=== PATIENT | male | born 1950 | race Caucasian/White ===

== ENCOUNTER 2019-08-10 17:46 | Emergency (ER) | payer MEDICARE ==
--- NOTE | 2019-08-10 19:23 | ER Document Report ---
ED Medical Screen (RME) - General Chief Complaint: General Weakness Stated Complaint: GENERAL FATIGUE VERY WEAK Time Seen by Provider: 08/10/19 19:16 - HPI Notes: 08/10/19 19:21 Patient is a 69-year-old male with a history of ascites and cirrhosis as well as a ?rt abd clot (on coumadin for) who presents complaining of generalized weakness and dyspnea exertion for the past month. Denies fever, chest pain, vomiting/diarrhea. Patient states that he has not had any paracentesis performed recently. I have treated and performed a rapid initial assessment of this patient. A comprehensive ED assessment and evaluation of the patient, analysis of test results and completion of medical decision making process will be conducted by additional ED providers. PHYSICAL EXAMINATION: GENERAL: Well-appearing, well-nourished and in no acute distress. A&Ox4. Answers questions appropriately. Lungs: CTAB Heart: RRR Extremities: No edema Physical Exam - Vital signs Vitals: Temp Pulse Resp BP Pulse Ox 98 F 86 18 124/60 100 08/10/19 18:05 08/10/19 18:05 08/10/19 18:05 08/10/19 18:05 08/10/19 18:05 Course - Vital Signs Vital signs: Temp Pulse Resp BP Pulse Ox 98 F 86 18 124/60 100 08/10/19 18:05 08/10/19 18:05 08/10/19 18:05 08/10/19 18:05 08/10/19 18:05
[2019-08-10 20:58] LABS: APPEARANCE,URINE CLEAR; BILIRUBIN,URINE NEGATIVE (NEGATIVE); COLOR,URINE YELLOW; GLUCOSE, URINE NEGATIVE (NEGATIVE); KETONES,URINE NEGATIVE (NEGATIVE); PROTEIN,URINE NEGATIVE (NEGATIVE); URINE SPECIFIC GRAVITY 1.018
--- NOTE | 2019-08-10 20:58 | RADIOLOGY REPORT (SQ) ---
XR CHEST 2 VIEWS EXAM DATE: 08/10/2019 7:20 PM QUANTITATIVE DEVELOPER HISTORY: [facility]. COMPARISON: None. FINDINGS: Normal heart size without pulmonary edema. The lungs are clear. No pleural effusions or pneumothorax. No acute bony findings are seen. IMPRESSION: No evidence of acute cardiopulmonary disease.
[2019-08-10 21:05] LABS: HEMATOCRIT 17.6 % (37.9-51.0); MEAN CORPUSCULAR HEMOGLOBIN 21.3 pg (27.0-33.4); MEAN CORPUSCULAR HGB CONC 30.8 g/dL (32.0-36.0); MEAN CORPUSCULAR VOLUME 69 fl (80-97); PLATELET COUNT 161 10^3/uL (150-450); RED BLOOD COUNT 2.55 10^6/uL (4.35-5.55); RED CELL DISTRIBUTION WIDTH 19.8 % (11.5-14.0); WHITE BLOOD COUNT 4.8 10^3/uL (4.0-10.5)
[2019-08-10 21:10] LABS: HEMOGLOBIN 5.4 g/dL (13.5-17.0)
[2019-08-10 21:17] LABS: INTERNATIONAL RATION (INR) 4.01; PROTHROMBIN TIME 40.1 SEC (11.4-15.4)
[2019-08-10] MEDS ORDERED: NORMAL SALINE 250 ML IV PRN ×2 (21:24)
[2019-08-10] MEDS ORDERED: ADENOSINE INJ/PF 6 MG/2 ML SDV IV ONE (21:26)
[2019-08-10 21:35] LABS: ALBUMIN 3.2 g/dL (3.5-5.0); ALKALINE PHOSPHATASE 120 U/L (38-126); ANION GAP 10 (5-19); ASPARTATE AMINO TRANSFERASE 24 U/L (17-59); BILIRUBIN,DIRECT 0.2 mg/dL (0.0-0.4); BILIRUBIN,TOTAL 0.5 mg/dL (0.2-1.3); BLOOD UREA NITROGEN 15 mg/dL (7-20); CALCIUM 8.5 mg/dL (8.4-10.2); CARBON DIOXIDE 19 mmol/L (22-30); CHLORIDE 109 mmol/L (98-107); GLUCOSE 95 mg/dL (75-110); POTASSIUM 3.9 mmol/L (3.6-5.0)
[2019-08-10] MEDS ORDERED: PANTOPRAZOLE SODIUM 40 MG VIAL IV ONE (21:35)
[2019-08-10] MEDS ORDERED: PANTOPRAZOLE SODIUM 40 MG VIAL IV PRN (21:36)
[2019-08-10] MEDS ORDERED: OCTREOTIDE ACETATE INJ/PF 100 MCG/1 ML SDV IV ONE (21:36)
[2019-08-10 21:45] LABS: NT PRO BNP 292 pg/mL (<125); TROPONIN I < 0.012 ng/mL
--- NOTE | 2019-08-10 21:46 | ER Document Report ---
ED General - General Chief Complaint: General Weakness Stated Complaint: GENERAL FATIGUE VERY WEAK Time Seen by Provider: 08/10/19 19:16 Mode of Arrival: Ambulatory Information source: Patient TRAVEL OUTSIDE OF THE U.S. IN LAST 30 DAYS: No - HPI Onset: Other - over the last few weeks Onset/Duration: Gradual Quality of pain: Other - Patient only has chest pain when his heart is racing. Patient developed chest pain in the ER when he went into SVT Severity: Moderate Pain Level: Denies Associated symptoms: Shortness of breath, Weakness Exacerbated by: Other - exertion Notes: 69 year old male with a history of Alcoholic Cirrhosis, Prior GI Bleed and Varicies, Recent Diagnosis of a Right Groin "Clot" on Coumadin here for generalized weakness, shortness of breath, and an episode of palpitations which was self limited. The patient just moved from [place], [place] to here in [facility]. The patient was seen and evaluated by the midlevel provider in the ER prior to me seeing the patient and he had labs drawn which revealed a hemoglobin in the 5s. The patient went into SVT while in his ER room. During this time the patient had SOB, chest pain, and he felt his heart racing - Related Data Allergies/Adverse Reactions: No Known Allergies Allergy (Unverified 08/10/19 20:54) Home Medications: coumadin Past Medical History - Social History Smoking Status: Current Every Day Smoker Frequency of alcohol use: patient used to be an alcoholic Drug Abuse: Marijuana Lives with: Alone Family History: Reviewed & Not Pertinent Patient has suicidal ideation: No Patient has homicidal ideation: No Review of Systems - Review of Systems Constitutional: Weakness EENT: No symptoms reported Cardiovascular: Chest pain, Palpitations, Heart racing, Dizziness, Lightheaded Respiratory: Short of breath Gastrointestinal: Black stools Genitourinary: No symptoms reported Male Genitourinary: No symptoms reported Musculoskeletal: No symptoms reported Skin: No symptoms reported Hematologic/Lymphatic: No symptoms reported Neurological/Psychological: Weakness Physical Exam - Vital signs Vitals: Temp Pulse Resp BP Pulse Ox 98 F 86 18 124/60 100 08/10/19 18:05 08/10/19 18:05 08/10/19 18:05 08/10/19 18:05 08/10/19 18:05 - Notes Notes: GENERAL: Well-appearing, well-nourished and in no acute distress. HEAD: Atraumatic, normocephalic. EYES: Pupils equal round and reactive to light, extraocular movements intact, sclera anicteric, conjunctiva are normal. ENT: TMs normal, nares patent, oropharynx clear without exudates. Moist mucous membranes. Poor Dentition with missing teeth NECK: Normal range of motion, supple without lymphadenopathy or JVD. LUNGS: Breath sounds clear to auscultation bilaterally and equal. No wheezes rales or rhonchi. HEART: Regular rate and rhythm without murmurs, rubs or gallops. ABDOMEN: Soft, nontender, normoactive bowel sounds. No guarding, no rebound. No masses appreciated. Mild abdominal distention. RECTAL: Brown Stool, Guiac negative EXTREMITIES: Normal range of motion, no pitting or edema. No clubbing or cyanosis. NEUROLOGICAL: Cranial nerves II through XII grossly intact. Normal speech, normal gait. PSYCH: Normal mood, normal affect. SKIN: Warm, Dry, normal turgor, no rashes or lesions noted. Patient is somewhat pale appearing Course - Re-evaluation Re-evalutation: 08/10/19 23:15 The patient is very anemic with a hemoglobin in the 5s. He went into SVT while in the ER. This was broken with Adenosine 6mg. Patient had some chest pain and S T depressions in V4-V6 while he was in SVT but these EKG changes normalized once he came out of SVT and into sinus rhythm. Patient had 2 units of Trauma Blood ordered since he was in SVT likely due to his severe anemia. Patient was then given a 3rd unit of type specific blood. Patient also was started on Protonix and Octreotide (bolus and infusion). There is no GI assembler bonding at this hospital so plan is for patient transfer 08/11/19 00:34 The patient was accepted at [facility] by Dr. Cleveland. Patient remains stable a this time. Will administer 5mg of Oral Vitamin K since the patient's INR is in thr 4s. 08/11/19 00:52 - Vital Signs Vital signs: Temp Pulse Resp BP Pulse Ox 97.5 F 82 18 126/87 H 100 08/10/19 22:59 08/10/19 23:01 08/11/19 00:01 08/11/19 00:00 08/11/19 00:01 - Laboratory Result Diagrams: 08/10/19 20:49 08/10/19 20:49 Laboratory results interpreted by me: 08/10/19 08/10/19 08/10/19 20:00 20:49 20:49 RBC 2.55 L Hgb 5.4 L Hct 17.6 L MCV 69 L MCH 21.3 L MCHC 30.8 L RDW 19.8 H Seg Neuts % (Manual) 80 H Monocytes % (Manual) 2 L PT 40.1 H Chloride Carbon Dioxide NT-Pro-B Natriuret Pep Albumin TSH Urine Urobilinogen 2.0 H Crossmatch 08/10/19 08/10/19 08/10/19 20:49 20:49 20:49 RBC Hgb Hct MCV MCH MCHC RDW Seg Neuts % (Manual) Monocytes % (Manual) PT Chloride 109 H Carbon Dioxide 19 L NT-Pro-B Natriuret Pep 292 H Albumin 3.2 L TSH 5.51 H Urine Urobilinogen Crossmatch 08/10/19 21:31 RBC Hgb Hct MCV MCH MCHC RDW Seg Neuts % (Manual) Monocytes % (Manual) PT Chloride Carbon Dioxide NT-Pro-B Natriuret Pep Albumin TSH Urine Urobilinogen Crossmatch See Detail - EKG Interpretation by Me EKG shows normal: Sinus rhythm Rate: Normal Rhythm: NSR [place]/QRS: Left axis deviation Critical Care Note - Critical Care Note Total time excluding time spent on procedures (mins): 40 Discharge - Discharge Clinical Impression: SVT (supraventricular tachycardia) GI bleed Qualifiers: GI bleed type/associated pathology: unspecified gastrointestinal hemorrhage type Qualified Code(s): K92.2 - Gastrointestinal hemorrhage, unspecified Anemia Qualifiers: Anemia type: unspecified type Qualified Code(s): D64.9 - Anemia, unspecified Cirrhosis Qualifiers: Hepatic cirrhosis type: alcoholic cirrhosis Ascites presence: with ascites Qualified Code(s): K70.31 - Alcoholic cirrhosis of liver with ascites Condition: Serious Disposition: CRITICAL ACCESS HOSPITAL
[2019-08-10 21:47] LABS: ABSOLUTE LYMPHOCYTES# (MANUAL) 0.7 10^3/uL (0.5-4.7); ABSOLUTE MONOCYTES # (MANUAL) 0.1 10^3/uL (0.1-1.4); BASOPHILS % (MANUAL) 2 % (0-2); EOSINOPHILS % (MANUAL) 1 % (0-6); LYMPHOCYTES % (MANUAL) 15 % (13-45); MONOCYTES % (MANUAL) 2 % (3-13); SEGMENTED NEUTROPHILS % (MAN) 80 % (42-78); TOTAL CELLS COUNTED 100
[2019-08-10 21:50] LABS: HYPOCHROMASIA 1+; PLATELET COMMENT ADEQUATE
[2019-08-10 21:51] LABS: ANISOCYTOSIS 2+; OVALOCYTES 1+; SCHISTOCYTES SLIGHT; TEAR DROP CELLS 1+
[2019-08-10] MEDS ORDERED: OCTREOTIDE ACETATE INJ/PF 100 MCG/1 ML SDV ONE (22:05)
[2019-08-10] MEDS ORDERED: NORMAL SALINE 500 ML with OCTREOTIDE ACETATE 500 MCG IV PRN ×2 (22:29)
--- NOTE | 2019-08-10 23:01 | EKG REPORT ---
SEVERITY:- ABNORMAL ECG - SINUS RHYTHM LEFT AXIS DEVIATION PROBABLE ANTEROSEPTAL INFARCT, OLD : Confirmed by: Kike Rodriguez MD 10-Aug-2019 22:59:56
--- NOTE | 2019-08-10 23:01 | EKG REPORT ---
SEVERITY:- ABNORMAL ECG - SUPRAVENTRICULAR TACHYCARDIA LEFT ANTERIOR FASCICULAR BLOCK CONSIDER ANTEROSEPTAL INFARCT REPOLARIZATION ABNORMALITY, PROB RATE RELATED : Confirmed by: Kike Rodriguez MD 10-Aug-2019 23:01:01
--- NOTE | 2019-08-10 23:02 | EKG REPORT ---
SEVERITY:- ABNORMAL ECG - SINUS RHYTHM BORDERLINE IVCD WITH LAD OLD ANTEROSEPTAL W[place] : Confirmed by: Kike Rodriguez MD 10-Aug-2019 23:01:36
[2019-08-11] MEDS ORDERED: PHYTONADIONE 5 MG TABLET PO ONE (00:35)
[2019-08-11 02:02] VITALS: BP 138/86
== END 2019-08-11 01:27 | disposition short-term general hospital (02) ==
LOC: ER 17:46
DX: I47.1 Supraventricular tachycardia (principal); K92.2 Gastrointestinal hemorrhage, unspecified; D64.9 Anemia, unspecified; K70.31 Alcoholic cirrhosis of liver with ascites; R53.1 Weakness; R53.83 Other fatigue; R06.02 Shortness of breath; R00.2 Palpitations; R07.9 Chest pain, unspecified; R42 Dizziness and giddiness; Z79.01 Long term (current) use of anticoagulants; F17.200 Nicotine dependence, unspecified, uncomplicated
CPT/HCPCS: 93005; 99291; 96375; 96365; 96366; 96368; 86900; 86901; 36415; 36430; 86850; 82962; 83735; 84443; 85025; 85610; 80053; 81001; 84484; 86920; 83880; 71046; 93010; P9016; A9270 ×2; C9113; J0153; J2354; J3490; J7050

== ENCOUNTER 2019-09-11 11:36 | Emergency (ER) | payer MEDICARE ==
--- NOTE | 2019-09-11 13:29 | ER Document Report ---
ED Medical Screen (RME) - General Chief Complaint: Abdominal Pain Stated Complaint: ABDOMINAL PAIN Time Seen by Provider: 09/11/19 13:26 Mode of Arrival: Ambulatory Information source: Patient Notes: 69-year-old male presented to ED for complaint of abdominal pain and distention. He does have a history of cirrhosis and does have ascites. He is alert oriented respirations regular nonlabored. No nausea and vomiting nausea any fever fever denies any nausea vomiting or fever. States he was in the emergency room a month ago and was transferred to [place] for blood clot. He states he was on blood thinners and was bleeding internally. States he got a transfusion here before being transferred last month. I have greeted and performed a rapid initial assessment of this patient. A comprehensive ED assessment and evaluation of the patient, analysis of test results and completion of medical decision making process will be conducted by an additional ED providers. TRAVEL OUTSIDE OF THE U.S. IN LAST 30 DAYS: No - Related Data Allergies/Adverse Reactions: No Known Allergies Allergy (Verified 09/11/19 13:26) Past Medical History Pulmonary Medical History: Reports: Hx COPD Physical Exam - Vital signs Vitals: Temp Pulse Resp BP Pulse Ox 97.4 F 67 19 148/80 H 98 09/11/19 13:17 09/11/19 13:17 09/11/19 13:17 09/11/19 13:17 09/11/19 13:17 Course - Vital Signs Vital signs: Temp Pulse Resp BP Pulse Ox 97.4 F 67 19 148/80 H 98 09/11/19 13:17 09/11/19 13:17 09/11/19 13:17 09/11/19 13:17 09/11/19 13:17
--- NOTE | 2019-09-11 13:29 | ER Document Report ---
ED GI/ - General Chief Complaint: Abdominal Pain Stated Complaint: ABDOMINAL PAIN Time Seen by Provider: 09/11/19 13:26 Mode of Arrival: Ambulatory Information source: Patient TRAVEL OUTSIDE OF THE U.S. IN LAST 30 DAYS: No - Related Data Allergies/Adverse Reactions: No Known Allergies Allergy (Verified 09/11/19 13:26) Past Medical History - Social History Family History: Reviewed & Not Pertinent Pulmonary Medical History: Reports: Hx COPD Physical Exam - Vital signs Vitals: Temp Pulse Resp BP Pulse Ox 97.4 F 67 19 148/80 H 98 09/11/19 13:17 09/11/19 13:17 09/11/19 13:17 09/11/19 13:17 09/11/19 13:17 Course - Vital Signs Vital signs: Temp Pulse Resp BP Pulse Ox 97.4 F 67 19 148/80 H 98 09/11/19 13:17 09/11/19 13:17 09/11/19 13:17 09/11/19 13:17 09/11/19 13:17
--- NOTE | 2019-09-11 14:02 | RADIOLOGY REPORT (SQ) ---
EXAM DESCRIPTION: ACUTE ABDOMEN SERIES COMPLETED DATE/TIME: 09/11/2019 12:52 pm REASON FOR STUDY: Abdominal pain and distention history of ascites. Mid abdominal and right lower q uadrant pain. COMPARISON: None. NUMBER OF VIEWS: Three views. TECHNIQUE: Frontal chest, supine abdomen and upright/decubitus abdomen radiographic images acquired. LIMITATIONS: None. FINDINGS: CHEST: Lungs clear of infiltrates. FREE AIR: None. No abnormal gas collections. BOWEL GAS PATTERN: Upright view demonstrates diffuse hazy opacification throughout the abdomen with s mall bowel loops pushed into the upper abdomen, probably representing moderate amount of ascites. Way pine view demonstrates normal gas-filled loops of small bowel without evidence of obstruction. CALCIFICATIONS: No suspicious calcifications. HARDWARE: None in the abdomen. SOFT TISSUES: No gross mass or suggestion of organomegaly. BONES: No acute fracture. No worrisome bone lesions. OTHER: No other significant finding. IMPRESSION: Probable moderate amount of ascites. Nonobstructive bowel gas pattern. TECHNICAL DOCUMENTATION: JOB ID: [id number]- All Rights Reserved Reading location - IP/workstation name: [email or web address]
[2019-09-11 16:25] LABS: HEMATOCRIT 29.4 % (37.9-51.0); HEMOGLOBIN 9.4 g/dL (13.5-17.0); INTERNATIONAL RATION (INR) 1.18; MEAN CORPUSCULAR HEMOGLOBIN 23.8 pg (27.0-33.4); MEAN CORPUSCULAR HGB CONC 31.9 g/dL (32.0-36.0); MEAN CORPUSCULAR VOLUME 75 fl (80-97); PLATELET COUNT 124 10^3/uL (150-450); PROTHROMBIN TIME 15.1 SEC (11.4-15.4); RED BLOOD COUNT 3.93 10^6/uL (4.35-5.55); RED CELL DISTRIBUTION WIDTH 22.6 % (11.5-14.0); WHITE BLOOD COUNT 3.8 10^3/uL (4.0-10.5)
[2019-09-11 16:46] LABS: ALBUMIN 3.3 g/dL (3.5-5.0); ALKALINE PHOSPHATASE 131 U/L (38-126); ANION GAP 10 (5-19); ASPARTATE AMINO TRANSFERASE 27 U/L (17-59); BILIRUBIN,DIRECT 0.3 mg/dL (0.0-0.4); BILIRUBIN,TOTAL 0.7 mg/dL (0.2-1.3); BLOOD UREA NITROGEN 13 mg/dL (7-20); CALCIUM 8.7 mg/dL (8.4-10.2); CARBON DIOXIDE 22 mmol/L (22-30); CHLORIDE 107 mmol/L (98-107); GLUCOSE 77 mg/dL (75-110); TOTAL PROTEIN 7.1 g/dL (6.3-8.2)
[2019-09-11 16:57] LABS: ABSOLUTE LYMPHOCYTES# (MANUAL) 0.6 10^3/uL (0.5-4.7); ABSOLUTE MONOCYTES # (MANUAL) 0.2 10^3/uL (0.1-1.4); BASOPHILS % (MANUAL) 3 % (0-2); EOSINOPHILS % (MANUAL) 6 % (0-6); LYMPHOCYTES % (MANUAL) 15 % (13-45); MONOCYTES % (MANUAL) 4 % (3-13); SEGMENTED NEUTROPHILS % (MAN) 72 % (42-78); TOTAL CELLS COUNTED 100
[2019-09-11 16:59] LABS: ANISOCYTOSIS 3+; HYPOCHROMASIA SLIGHT; PLATELET COMMENT DECREASED; PLATELET LARGE PRESENT
--- NOTE | 2019-09-11 17:05 | ER Document Report ---
ED General - General Chief Complaint: Abdominal Pain Stated Complaint: ABDOMINAL PAIN Time Seen by Provider: 09/11/19 13:26 Mode of Arrival: Ambulatory Notes: 69-year-old male arrives by POV with chief complaint of ascites and abdominal pain. He reports he has not had this tapped and more than 1 month. He was recently seen here in this ER on [address] Sol after having a 5.8 hemoglobin and went into SVT and was recovered after adenosine. Patient received 3 units of packed RBCs and Protonix and octreonide and also transferred to [place] for GI because we had no specialist here at that time. Patient reports he is out of his Lasix and spironolactone and Protonix. I spoke with nursing nursery supervisor for fast food sales assistant in order to get tapped for peritoneal access. 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 This continued for many years and and 2008 was diagnosed with disease and ascites. Patient reported when he was in [place] in June he was hospitalized in [facility] and placed on Coumadin because of a blood clot in his right thigh. TRAVEL OUTSIDE OF THE U.S. IN LAST 30 DAYS: No - Related Data Allergies/Adverse Reactions: No Known Allergies Allergy (Verified 09/11/19 13:36) Past Medical History - General Information source: Patient - Social History Smoking Status: Current Every Day Smoker Cigarette use (# per day): Yes Chew tobacco use (# tins/day): No Smoking Education Provided: Yes Frequency of alcohol use: Ex-drinker of alcohol Drug Abuse: None Family History: Reviewed & Not Pertinent Patient has suicidal ideation: No Patient has homicidal ideation: No Pulmonary Medical History: Reports: Hx COPD Review of Systems - Review of Systems Constitutional: No symptoms reported EENT: No symptoms reported Cardiovascular: No symptoms reported Respiratory: No symptoms reported Gastrointestinal: See HPI, Abdomen distended - very taunt abdomen Genitourinary: No symptoms reported Male Genitourinary: No symptoms reported Musculoskeletal: No symptoms reported Skin: No symptoms reported Hematologic/Lymphatic: No symptoms reported Neurological/Psychological: No symptoms reported Physical Exam - Vital signs Vitals: Temp Pulse Resp BP Pulse Ox 97.4 F 67 19 148/80 H 98 09/11/19 13:17 09/11/19 13:17 09/11/19 13:17 09/11/19 13:17 09/11/19 13:17 Interpretation: Normal - General General appearance: Alert In distress: None - HEENT Head: Normocephalic Eyes: Normal Conjunctiva: Normal Cornea: Normal Extraocular movements intact: Yes Eyelashes: Normal Pupils: PERRL Sinus: Normal Nasal: Normal Mouth/Lips: Normal Mucous membranes: Normal Pharynx: Normal Neck: Normal - Respiratory Respiratory status: No respiratory distress Chest status: Nontender Breath sounds: Normal Chest palpation: Normal - Cardiovascular Rhythm: Regular Heart sounds: Normal auscultation Murmur: No Friction rub: No Aretha's crunch: No - Abdominal Inspection: Other - Ascites quite evident from epigastric to suprapubic and very taut Distension: Distended Bowel sounds: Normal Tenderness: Nontender Organomegaly: No organomegaly - Back Back: Normal - Extremities General upper extremity: Normal inspection General lower extremity: Normal inspection - Neurological Neuro grossly intact: Yes Cognition: Normal Orientation: AAOx4 Song Coma Scale Eye Opening: Spontaneous [place] Coma Scale Verbal: Oriented [place] Coma Scale Motor: Obeys Commands [place] Coma Scale Total: 15 Speech: Normal Cranial nerves: Normal Cerebellar coordination: Normal Motor strength normal: LUE, RUE, LLE, RLE Additional motor exam normals: Equal adjunct instructor - Psychological Associated symptoms: Normal affect - Skin Skin Temperature: Warm Skin Moisture: Dry Course - Vital Signs Vital signs: Temp Pulse Resp BP Pulse Ox 97.4 F 70 20 165/80 H 100 09/11/19 13:17 09/11/19 19:50 09/11/19 19:50 09/11/19 19:50 09/11/19 19:50 - Laboratory Result Diagrams: 09/11/19 15:42 09/11/19 15:42 Laboratory results interpreted by me: 09/11/19 09/11/19 09/11/19 14:31 15:42 15:42 WBC 3.8 L RBC 3.93 L Hgb 9.4 L Hct 29.4 L MCV 75 L MCH 23.8 L MCHC 31.9 L RDW 22.6 H Plt Count 124 L Basophils % (Manual) 3 H Alkaline Phosphatase 131 H Albumin 3.3 L Urine Urobilinogen 2.0 H Critical Care Note - Critical Care Note Total time excluding time spent on procedures (mins): 90 Comments: I spoke with Cedric CLAYTON who is nursery supervisor and also with [facility] and x-ray for arranging for paracentesis tomorrow. Ultrasound-guided paracentesis is only 8:00 to 4 PM Ressie in ultrasound called me alert me that he took off around 6 L on paracentesis for Mr. Palomo. He tolerated this well. He was observed for least 1 to 2 hours and was given a meal Discharge - Discharge Clinical Impression: S/P abdominal paracentesis Ascitic fluid Qualifiers: Ascites type: due to alcoholic cirrhosis Qualified Code(s): K70.31 - Alcoholic cirrhosis of liver with ascites Condition: Good Disposition: HOME, SELF-CARE Additional Instructions: Follow-up with personal doctor return to ER as needed take medicines as directed encourage fluids Prescriptions: Spironolactone [Aldactone 100 mg Tablet] 1 tab PO DAILY #30 tab Furosemide [Lasix 40 mg Tablet] 40 mg PO QAM #30 tablet Pantoprazole Sodium [Protonix [address] Tablet] 40 mg PO QAM #30 tablet.dr Forms: Return to School, Return to Work
[2019-09-11 18:23] LABS: APPEARANCE,URINE CLEAR; BILIRUBIN,URINE NEGATIVE (NEGATIVE); COLOR,URINE YELLOW; GLUCOSE, URINE NEGATIVE (NEGATIVE); KETONES,URINE NEGATIVE (NEGATIVE); PROTEIN,URINE NEGATIVE (NEGATIVE); URINE SPECIFIC GRAVITY 1.018
[2019-09-11] MEDS ORDERED: FUROSEMIDE 40 MG TABLET PO ONE (20:43)
[2019-09-11] MEDS ORDERED: PANTOPRAZOLE SODIUM 40 MG TABLET.DR PO ONE (20:43)
[2019-09-11] MEDS ORDERED: SPIRONOLACTONE 25 MG TABLET PO ONE (20:44)
[2019-09-11 21:56] VITALS: BP 127/89
--- NOTE | 2019-09-13 15:12 | RADIOLOGY REPORT (SQ) ---
EXAM DESCRIPTION: U/S ABD PARACENTESIS COMPLETED DATE/TIME: 09/11/2019 8:12 pm REASON FOR STUDY: ascities COMPARISON None. LIMITATIONS: None. PROCEDURE: Procedure performed by Eladio Unger PA-C. After obtaining informed consent, the patient was brought to the ultrasound suite. The procedure was performed with the patient on a gurney. Ult rasound was used to identify a prominent pocket of ascites in the right lower quadrant. An appropria te access site was selected. The patient was prepped and draped in usual sterile fashion. The acce ss site was anesthetized with 7 mL 1% lidocaine. A Kpzx-X-Gpybrdle needle was advanced into the flui d. After aspiration of fluid the needle, the catheter was advanced off the needle into the fluid. A total of 6000 mL of clear straw-colored fluid was removed. The patient tolerated the procedure well left the department in satisfactory condition. Fluid was NOT sent for laboratory testing. IMPRESSION: Successful ultrasound-guided THERAPEUTIC paracentesis COMMENT: Patient medication list reviewed: Yes- Quality ID# [id number]:Eligible professional attests to doc umenting in the medical record they obtained, updated, or reviewed the patient's current medications. TECHNICAL DOCUMENTATION: JOB ID: [id number]- All Rights Reserved Reading location - IP/workstation name: [email or web address]
== END 2019-09-11 21:56 | disposition home or self-care (01) ==
LOC: ER 11:36
PROC: 0W9G3ZZ Drainage of Peritoneal Cavity, Percutaneous Approach (ICD-10-PCS; principal; 2019-09-11)
DX: K70.31 Alcoholic cirrhosis of liver with ascites (principal); R10.9 Unspecified abdominal pain; Z79.899 Other long term (current) drug therapy; F17.210 Nicotine dependence, cigarettes, uncomplicated
CPT/HCPCS: 99291; 99292; 86900; 86901; 36415; 86850; 83690; 85025; 85610; 85730; 80053; 81001; 74022; 49083; A9270 ×3; J3490